=== PATIENT | male | born 1995 | race Caucasian/White ===

== ENCOUNTER 2021-12-27 16:30 | Emergency (ER) | payer SELFPAY ==
--- NOTE | 2021-12-27 17:26 | RAD REPORT ---
EXAM DESCRIPTION: CT - [facility] - 12/27/2021 5:12 pm CLINICAL HISTORY: Trauma, head and neck injury. headache COMPARISON: No comparisons TECHNIQUE: Axial 5 mm thick images of the head were obtained. Axial 2 mm thick images of the cervical spine were obtained with sagittal and coronal reconstruction images generated and reviewed. All CT scans are performed using dose optimization technique as appropriate and may include automated exposure control or mA/KV adjustment according to patient size. FINDINGS: CT HEAD WITHOUT CONTRAST: No acute hemorrhage, hydrocephalus or extra-axial collection is identified.No areas of brain edema or midline shift. The paranasal sinuses and mastoids are clear.The calvarium is intact. CT CERVICAL SPINE WITHOUT CONTRAST: No fracture or subluxation.No prevertebral soft tissues swelling is identified. IMPRESSION: No acute intracranial or cervical spine findings.
--- NOTE | 2021-12-28 01:03 | ER ---
Nurse's Notes [facility] Name: Vernon Becerra Age: 26 yrs Sex: Male : 1995 Arrival Date: 12/27/2021 Time: 16:35 Bed IW2 Private MD: Diagnosis: Episodic tension-type headache;Headache Presentation: 12/27 16:40 Chief complaint: Patient states: I was hit in the back of the head with a softball 1 ld1 month ago - Denies LOC - no vomiting. Pt reports constant headache since being hit by softball. Coronavirus screen: At this time, the client does not indicate any symptoms associated with coronavirus-19. Ebola Screen: No symptoms or risks identified at this time. Initial Sepsis Screen: Does the patient meet any 2 criteria? No. Patient's initial sepsis screen is negative. Does the patient have a suspected source of infection? No. Patient's initial sepsis screen is negative. Risk Assessment: Do you want to hurt yourself or someone else? Patient reports no desire to harm self or others. Onset of symptoms was December 27, 2021 at 16:42. 16:40 Method Of Arrival: Ambulatory ld1 16:40 Acuity: OMAR 3 ld1 Triage Assessment: 16:42 General: Appears in no apparent distress. comfortable, Behavior is calm, cooperative, ld1 appropriate for age. Pain: Complains of pain in scalp Pain does not radiate. Pain currently is 8 out of 10 on a pain scale. Quality of pain is described as throbbing, Pain began suddenly. Pain: Is intermittent. EENT: No signs and/or symptoms were reported regarding the EENT system. Neuro: Level of Consciousness is awake, alert, obeys commands, Oriented to person, place, time, situation, Denies blurred vision. Cardiovascular: Capillary refill < 3 seconds Patient's skin is warm and dry. Respiratory: Airway is patent Respiratory effort is even, unlabored. GI: Abdomen is flat, non-distended. : No signs and/or symptoms were reported regarding the genitourinary system. Derm: No signs and/or symptoms reported regarding the dermatologic system. Musculoskeletal: No signs and/or symptoms reported regarding the musculoskeletal system. Historical: - Allergies: 16:42 No Known Allergies; ld1 - Home Meds: 16:42 None [Active]; ld1 - PMHx: 16:42 None; ld1 - PSHx: 16:42 None; ld1 - Immunization history:: Adult Immunizations up to date, Client reports receiving the 2nd dose of the Covid vaccine. - Social history:: Smoking status: Patient denies any tobacco usage or history of. Patient/guardian denies using alcohol. Vital Signs: 16:40 BP 148 / 83; Pulse 67; Resp 18; Temp 98.3(TE); Pulse Ox 98% on R/A; Weight 77.11 kg; ld1 Height 5 ft. 8 in. (172.72 cm); Pain 8/10; 16:40 Body Mass Index 25.85 (77.11 kg, 172.72 cm) ld1 ED Course: 16:35 Patient arrived in ED. mr 16:37 Mitchell Francisco PA is PHCP. cp 16:37 Jose oDw MD is Attending Physician. cp 16:42 Triage completed. ld1 16:42 Arm band placed on right wrist. ld1 17:13 CT Head C Spine In Process Unspecified. EDMS Administered Medications: No medications were administered Outcome: 20:16 Discharge ordered by . ld1 20:16 Patient left the ED. ld1 Signatures: Dispatcher [employer] EDMS Kymberly Medina mr Mitchell Francisco PA PA cp Enedina Lopez, RN RN ld1
[2021-12-28 01:42] VITALS: BP 148/83; TEMP 98.3; O2SAT 98
--- NOTE | 2021-12-28 20:16 | EDPHYS ---
Physician Documentation [facility] Name: Vernon Becerra Age: 26 yrs Sex: Male : 1995 Arrival Date: 12/27/2021 Time: 16:35 Bed IW2 Private MD: ED Physician Jose Dow HPI: 12/27 17:00 This 26 yrs old Male presents to ER via Ambulatory with complaints of Head pain. cp 17:00 The patient complains of pain to the left occipital area. The patient describes the cp headache as aching, waxing and waning. Onset: The symptoms/episode began/occurred 1 month(s) ago. 17:00 Associated signs and symptoms: Pertinent negatives: altered mental status, dizziness, cp neck stiffness, paresthesias, vision changes, vomiting. 17:00 Severity of symptoms: in the emergency department the pain is unchanged, despite home cp interventions. 17:00 Patient reports prior to onset of headache 1 month ago, he was struck by softball to cp left back of head causing vision to go dark, but he did not lose consciousness. Patient reports headache has waxed and waned and seems to worsen with activity. Historical: - Allergies: 16:42 No Known Allergies; ld1 - Home Meds: 16:42 None [Active]; ld1 - PMHx: 16:42 None; ld1 - PSHx: 16:42 None; ld1 - Immunization history:: Adult Immunizations up to date, Client reports receiving the 2nd dose of the Covid vaccine. - Social history:: Smoking status: Patient denies any tobacco usage or history of. Patient/guardian denies using alcohol. ROS: 17:05 Eyes: Negative for injury, pain, redness, and discharge. cp 17:05 Constitutional: Negative for body aches, chills, fever. 17:05 ENT: Negative for drainage from ear(s), ear pain, sore throat, difficulty swallowing, difficulty handling secretions. 17:05 Cardiovascular: Negative for chest pain. 17:05 Respiratory: Negative for cough, shortness of breath, wheezing. 17:05 Abdomen/GI: Negative for abdominal pain, nausea, vomiting, and diarrhea. 17:05 Neuro: Positive for headache, of the left posterior scalp, Negative for dizziness, numbness, weakness. 17:05 All other systems are negative. Exam: 17:10 Constitutional: The patient appears in no acute distress, alert, awake, non-toxic, well cp developed, well nourished. 17:10 Head/face: Noted is tenderness, that is mild, of the left occipital area. cp 17:10 Eyes: Periorbital structures: appear normal, Conjunctiva: normal, no exudate, no injection, Sclera: no appreciated abnormality, Lids and lashes: appear normal, bilaterally. 17:10 ENT: External ear(s): are unremarkable, Ear canal(s): are normal, clear, TM's: dullness, bilaterally, Nose: is normal, Mouth: Lips: moist, Oral mucosa: pink and intact, moist, Posterior pharynx: Airway: no evidence of obstruction, patent. 17:10 Neck: C-spine: vertebral tenderness, is not appreciated, crepitus, is not appreciated, ROM/movement: is normal, is supple, without pain, no range of motions limitations, no nuchal rigidity. 17:10 Chest/axilla: Inspection: normal. 17:10 Cardiovascular: Rate: normal, Rhythm: regular. 17:10 Respiratory: the patient does not display signs of respiratory distress, Respirations: normal, no use of accessory muscles, no retractions, labored breathing, is not present. 17:10 Abdomen/GI: Exam negative for discomfort, distension, guarding, Inspection: abdomen appears normal. 17:10 Back: pain, is absent, ROM is normal. cp 17:10 Neuro: Orientation: to person, place \T\ time. Mentation: is normal, Motor: moves all fours, strength is normal, Sensation: is normal. 17:10 Musculoskeletal/extremity: Extremities: all appear grossly normal, with no appreciated cp pain with palpation. Vital Signs: 16:40 BP 148 / 83; Pulse 67; Resp 18; Temp 98.3(TE); Pulse Ox 98% on R/A; Weight 77.11 kg; ld1 Height 5 ft. 8 in. (172.72 cm); Pain 8/10; 16:40 Body Mass Index 25.85 (77.11 kg, 172.72 cm) ld1 MDM: 16:45 Patient medically screened. cp 19:00 Data reviewed: vital signs, nurses notes, radiologic studies, CT scan. cp 19:00 Differential diagnosis: fracture, concussion, intracranial bleed. Counseling: I had a cp detailed discussion with the patient and/or guardian regarding: the historical points, exam findings, and any diagnostic results supporting the discharge/admit diagnosis, radiology results, the need for outpatient follow up, a neurologist, to return to the emergency department if symptoms worsen or persist or if there are any questions or concerns that arise at home, Discussed results of CT head negative for fracture and/or intracranial bleed. Will discharge to home for continued monitoring. 12/27 16:45 Order name: CT Head C Spine cp Administered Medications: No medications were administered Disposition: 12/28 10:25 Co-signature as Attending Physician, Jose Dow MD. rn Disposition Summary: 12/27/21 20:16 Discharge Ordered Location: Home ld1 Condition: Stable ld1 Diagnosis - Episodic tension-type headache ld1 - Headache ld1 Forms: - Medication Reconciliation Form ld1 - Thank You Letter ld1 - Antibiotic Education ld1 - Prescription Opioid Use ld1 Signatures: Dispatcher [employer] EDMS Jose Dow MD MD rn Page, Corey, PA PA cp Dibbern, Lauren, RN RN ld1 Corrections: (The following items were deleted from the chart) 16:38 12/27 17:00 Associated signs and symptoms: Pertinent negatives: cp cp
== END 2021-12-27 20:16 | disposition home or self-care (01) ==
LOC: ER 16:30
DX: G44.219 Episodic tension-type headache, not intractable (principal)
CPT/HCPCS: 70450; 72125; 99282